=== PATIENT | female | born 2000 | race Caucasian/White ===

== ENCOUNTER 2024-01-08 00:52 | Inpatient (IN) | payer OTHER ==
[~2024-01-08] VITALS: Ht 162.6 cm; Wt 80.3 kg
[2024-01-08] MEDS ORDERED: UNKNOWN PSYCH MED PO (01:14)
[2024-01-08 02:09] LABS: BASOPHILS % (AUTO) 0.4 % (0.0-2.0); EOSINOPHILS % (AUTO) 2.6 % (1.0-6.0); HEMATOCRIT 37.7 % (36-46); HEMOGLOBIN 13.1 g/dL (12.0-16.0); LYMPHOCYTES # (AUTO) 2.1 K/uL (1.0-4.8); LYMPHOCYTES % (AUTO) 30.9 % (22.0-44.0); MEAN CORPUSCULAR HGB CONC 34.8 G/dL (31.0-37.0); MEAN CORPUSCULAR VOLUME 86 fL (80-100); MONOCYTES # (AUTO) 0.5 K/uL (0.1-1.0); NEUTROPHILS # (AUTO) 3.9 K/uL (1.8-7.7); NEUTROPHILS % (AUTO) 59.1 % (40.0-70.0); PLATELET COUNT (AUTO) 376 K/uL (150-450); RED BLOOD CELL COUNT(AUTO) 4.38 MIL/uL (4.00-5.20); WHITE BLOOD COUNT (AUTO) 6.7 K/uL (4.5-11.0)
[2024-01-08 02:24] LABS: ALCOHOL, BLOOD (SERUM) 111 mg/dL (0-10)
[2024-01-08 02:25] LABS: ANION GAP 14 mmol/L (8-16); CALCIUM, TOTAL 8.7 mg/dL (8.8-10.5); CARBON DIOXIDE 26 mmol/L (22-29); CHLORIDE 102 mmol/L (98-107); CREATININE 0.96 mg/dL (0.60-1.30); GLOMERULAR FILTR. RATE CALC > 60 mL/min (>60); GLUCOSE,RANDOM 106 mg/dL (70-110); POTASSIUM 3.4 mmol/L (3.5-5.1); SODIUM SERUM 142 mmol/L (136-145); UREA NITROGEN, BLOOD 6 mg/dL (7-18)
[2024-01-08 02:30] LABS: ALANINE AMINOTRANSFERASE 65 U/L (12-78); ALBUMIN 4.1 g/dL (3.4-5.0); ALKALINE PHOSPHATASE 151 U/L (46-116); ASPARTATE AMINOTRANSFERASE 30 U/L (15-37); BILIRUBIN,TOTAL 0.8 mg/dL (0.1-1.0); TOTAL PROTEIN, SERUM 8.3 g/dL (6.4-8.2)
[2024-01-08] MEDS ORDERED: HALOPERIDOL 5 MG TABLET PO PRN (03:00)
[2024-01-08 04:01] LABS: APPEARANCE,URINE CLEAR (CLEAR); BILIRUBIN,URINE NEGATIVE (NEGATIVE); COLOR,URINE COLORLESS (YELLOW); GLUCOSE, URINE (UA) NEGATIVE (NEGATIVE); KETONES,URINE NEGATIVE (NEGATIVE); LEUKOCYTE ESTERASE ,URINE NEGATIVE (NEGATIVE); NITRATE,URINE NEGATIVE (NEGATIVE); OCCULT BLOOD,URINE NEGATIVE (NEGATIVE); PROTEIN,URINE NEGATIVE (NEGATIVE); SPECIFIC GRAVITIY, URINE 1.005 (1.003-1.030); UROBILINOGEN,URINE <=1.0 mg/dL (<=1.0)
[2024-01-08] MEDS: LORazepam 2 MG TABLET PO PRN (04:11)
[2024-01-08 04:26] LABS: COVID AG,FIA SOURCE NASAL SWAB
[2024-01-08 04:50] LABS: SARS-COV2 (COVID) ANTIGEN,FIA Negative (Negative)
[2024-01-08] MEDS: ACETAMINOPHEN 500 MG TABLET PO ONE (04:56)
[2024-01-08 12:57] VITALS: BP 128/65; PULSE 74; RESP 20; TEMP 98.1; O2SAT 98
[2024-01-08] MEDS: NICOTINE 14 MG/24 HOUR PATCH TD SCH (14:28)
[2024-01-08] MEDS ORDERED: DOCUSATE SODIUM 100 MG CAPSULE PO PRN (15:45)
[2024-01-08] MEDS ORDERED: MAGNESIUM HYDROXIDE SUSPENSION 30 ML UDCUP PO PRN (15:45)
[2024-01-08] MEDS ORDERED: PETROLATUM,WHITE 28 GM JELLY TP PRN (15:45)
[2024-01-08] MEDS ORDERED: CloNIDine HCL 0.1 MG TABLET PO PRN (15:45)
[2024-01-08] MEDS ORDERED: ONDANSETRON HCL 4 MG TABLET PO PRN (15:45)
[2024-01-08] MEDS ORDERED: NICOTINE 14 MG/24 HOUR PATCH TD PRN (15:45)
[2024-01-08] MEDS ORDERED: GuaiFENesin/D-METHORPHAN [SUGAR-FREE] 200-20MG/10 ML SYRUP UDCUP PO PRN (15:45)
[2024-01-08] MEDS ORDERED: IBUPROFEN 400 MG TABLET PO PRN (15:45)
[2024-01-08] MEDS ORDERED: ALBUTEROL SULFATE HFA 90 MCG/PUFF 8 GM INHALER IH PRN (15:45)
[2024-01-08] MEDS ORDERED: MAG HYDROX/ALUMINUM HYD/SIMETH ES 30 ML SUSPENSION UDCUP PO PRN (15:45)
[2024-01-08] MEDS ORDERED: LOPERAMIDE HCL 2 MG CAPSULE PO PRN (15:45)
[2024-01-08] MEDS: ZOLPIDEM TARTRATE 10 MG TABLET PO PRN (20:05)
[2024-01-08 21:01] VITALS: BP 143/81; PULSE 72; RESP 18; TEMP 97.5; O2SAT 97
[2024-01-09 08:25] VITALS: BP 135/89; PULSE 76; RESP 16; TEMP 97.9; O2SAT 98
[2024-01-09 09:08] LABS: HEMOGLOBIN A1C 4.7 % (3.8-5.6)
[2024-01-09 09:16] LABS: CHOL/HDL RATIO 2.5 (3.9-5.7); THYROID STIMULATING HORMONE 1.42 uIU/mL (0.36-3.74)
[2024-01-09] MEDS: BACITRACIN 28 GM OINTMENT TP SCH (10:37)
[2024-01-09] MEDS: ACETAMINOPHEN 325 MG TABLET PO PRN (17:52)
[2024-01-09 21:24] VITALS: BP 143/73; PULSE 73; RESP 18; TEMP 98.3; O2SAT 99
[2024-01-10 08:22] VITALS: BP 142/78; PULSE 83; RESP 16; TEMP 97.9; O2SAT 98
[2024-01-10 09:25] LABS: FREE T4 (FREE THYROXINE) 0.95 ng/dL (0.76-1.46)
== END 2024-01-10 21:04 | disposition home or self-care (01) | DRG 885 ==
LOC: EMS 00:54 → B3A 08:17
PROVIDERS: ADMIT Psychiatry & Neurology Child & Adolescent Psychiatry; ATTEND Psychiatry & Neurology Child & Adolescent Psychiatry
PROC: GZ58ZZZ Individual Psychotherapy, Cognitive-Behavioral (ICD-10-PCS; principal; 2024-01-09)
DX: F33.2 Major depressive disorder, recurrent severe without psychotic features (principal); R45.851 Suicidal ideations; Z20.822 Contact with and (suspected) exposure to COVID-19; E87.6 Hypokalemia; F43.10 Post-traumatic stress disorder, unspecified; S41.112A Laceration without foreign body of left upper arm, initial encounter; F41.9 Anxiety disorder, unspecified; X58.XXXA Exposure to other specified factors, initial encounter; Y93.89 Activity, other specified; Y92.89 Other specified places as the place of occurrence of the external cause; Y99.8 Other external cause status
CPT/HCPCS: 80053; 80061; 81003; 83036; 84439; 84443; 85025; G0480